=== PATIENT | male | born 1985 | race Caucasian/White ===

== ENCOUNTER 2017-04-20 22:11 | Emergency (ER) | payer MEDICARE, OTHER ==
[~2017-04-20] VITALS: Ht 177.8 cm; Wt 86.2 kg
[~2017-04-20 22:11] MED LIST: BENZ100C PO; CETI10TA16 PO
[2017-04-20 22:45] LABS: BASO # 0.1 x10^3/uL (0.0-0.2); BASO % 1 % (0-3); EOS % 3 % (0-3); HEMATOCRIT 36.2 % (39.0-53.0); HEMOGLOBIN 12.5 g/dL (13.0-17.5); LYMPH # 2.7 x10^3/uL (1.0-4.8); LYMPH % 26 % (24-48); MEAN CORPUSCULAR HEMOGLOBIN 31 pg (25-35); MEAN CORPUSCULAR HGB CONC 35 g/dL (31-37); MEAN CORPUSCULAR VOLUME 91 fL (79-100); MONO % 7 % (0-9); NEUT % 63 % (31-73); PLATELET COUNT 488 x10^3/uL (140-400); RED BLOOD COUNT 3.99 x10^6/uL (4.30-5.70); RED CELL DISTRIBUTION WIDTH 12.2 % (11.5-14.5); WHITE BLOOD COUNT 10.5 x10^3/uL (4.0-11.0)
[2017-04-20 22:54] LABS: CALCIUM 9.4 mg/dL (8.5-10.1); GFR 86.1; POTASSIUM 3.5 mmol/L (3.5-5.1)
[2017-04-20 23:01] LABS: ALBUMIN 3.8 g/dL (3.4-5.0); ALBUMIN/GLOBULIN RATIO 1.1 (1.0-1.7); TOTAL BILIRUBIN 0.6 mg/dL (0.2-1.0); TOTAL PROTEIN 7.4 g/dL (6.4-8.2)
[2017-04-20 23:47] LABS: BILIRUBIN,URINE NEGATIVE (NEG); GLUCOSE,URINE NEGATIVE (NEG); NITRITE,URINE NEGATIVE (NEG); PROTEIN,URINE NEGATIVE (NEG-TRACE)
[2017-04-20 23:52] LABS: BARBITURATES NEG (NEG); BENZODIAZEPINES NEG (NEG); CANNABINOIDS NEG (NEG); COCAINE NEG (NEG); METHADONE NEG (NEG); OPIATES NEG (NEG); PHENCYCLIDINE NEG (NEG)
[2017-04-20 23:59] LABS: BACTERIA,URINE FEW /HPF (0-FEW); RBC,URINE 0 /HPF (0-2)
[2017-04-21 00:01] LABS: SQUAMOUS EPITHELIAL CELL,UR FEW /LPF
--- NOTE | 2017-04-21 00:50 | PHYS DOC ---
Past Medical History Past Medical History: Bipolar, Other Additional Past Medical Histor: NERVE DAMAGE, ANGER PROBLEMS,TRANSGENDER RE- ASSIGNMENT, Past Surgical History: Other Additional Past Surgical Histo: right wrist, nose Alcohol Use: Sober Additional Information: "SOBER SINCE 10/2016 Drug Use: None Adult General Chief Complaint Chief Complaint: Palpitations HPI HPI Patient is a 31 year old M who presents with chest pain and slurred speech. Patient is a transgender transitioning to a female on multiple medications for bipolar including lithium who developed some chest pain for the past day. Patient states the pain is left-sided nonradiating. Patient has no cardiac history. Patient does not describe the pain with exertion. Patient denies any shortness of breath. Patient denies any fevers. Patient denies any nausea/ vomiting/diarrhea. Review of Systems Review of Systems GEN: Denies fevers, chills, sweats HEENT: Denies blurred vision, sore throat CV: chest pain RESP: Denies shortness of air, cough GI: Denies n/v/d NEURO: Difficulty speaking MSK: Denies weakness, joint pain/swelling Allergies Allergies Allergies Coded Allergies Type Severity Reaction Last Updated Verified aripiprazole Allergy Intermediate patient states he blacks out while on this medication 09/18/14 Yes divalproex sodium Allergy Intermediate patient states he blacks out while on this medication 09/18/14 Yes Physical Exam Physical Exam GEN.: No apparent distress. Alert and oriented. HEENT: Head is normocephalic, atraumatic NECK: Supple. LUNGS: CTAB. HEART: RRR, S1, S2 present. Peripheral pulses intact ABDOMEN: Soft, nontender. Positive bowel sounds. EXTREMITIES: Without any cyanosis. NEUROLOGIC: Slow pressured speech, normal tone, cranial nerves II through over grossly intact without any focal neurological deficits PSYCHIATRIC: Normal affect, normal mood. SKIN: No ulcerations Current Patient Data Vital Signs Vital Signs Date Time Temp Pulse Resp B/P (MAP) Pulse Ox O2 Delivery O2 Flow Rate FiO2 04/21/17 00:45 60 20 100/58 (72) 95 Room Air 04/20/17 22:12 98.0 98.0 Lab Values Laboratory Tests Test 04/20/17 22:22 04/20/17 23:37 White Blood Count 10.5 x10^3/uL (4.0-11.0) Red Blood Count 3.99 x10^6/uL (4.30-5.70) L Hemoglobin 12.5 g/dL (13.0-17.5) L Hematocrit 36.2 % (39.0-53.0) L Mean Corpuscular Volume 91 fL (79-100) Mean Corpuscular Hemoglobin 31 pg (25-35) Mean Corpuscular Hemoglobin Concent 35 g/dL (31-37) Red Cell Distribution Width 12.2 % (11.5-14.5) Platelet Count 488 x10^3/uL (140-400) H Neutrophils (%) (Auto) 63 % (31-73) Lymphocytes (%) (Auto) 26 % (24-48) Monocytes (%) (Auto) 7 % (0-9) Eosinophils (%) (Auto) 3 % (0-3) Basophils (%) (Auto) 1 % (0-3) Neutrophils # (Auto) 6.6 x10^3uL (1.8-7.7) Lymphocytes # (Auto) 2.7 x10^3/uL (1.0-4.8) Monocytes # (Auto) 0.7 x10^3/uL (0.0-1.1) Eosinophils # (Auto) 0.3 x10^3/uL (0.0-0.7) Basophils # (Auto) 0.1 x10^3/uL (0.0-0.2) Sodium Level 139 mmol/L (136-145) Potassium Level 3.5 mmol/L (3.5-5.1) Chloride Level 103 mmol/L (98-107) Carbon Dioxide Level 29 mmol/L (21-32) Anion Gap 7 (6-14) Blood Urea Nitrogen 10 mg/dL (8-26) Creatinine 1.0 mg/dL (0.7-1.3) Estimated GFR (Cockcroft-Gault) 86.1 BUN/Creatinine Ratio 10 (6-20) Glucose Level 110 mg/dL (70-99) H Calcium Level 9.4 mg/dL (8.5-10.1) Total Bilirubin 0.6 mg/dL (0.2-1.0) Aspartate Amino Transferase (AST) 15 U/L (15-37) Alanine Aminotransferase (ALT) 19 U/L (16-63) Alkaline Phosphatase 55 U/L (46-116) Troponin I Quantitative < 0.017 ng/mL (0.000-0.055) Total Protein 7.4 g/dL (6.4-8.2) Albumin 3.8 g/dL (3.4-5.0) Albumin/Globulin Ratio 1.1 (1.0-1.7) Lipase 81 U/L (73-393) Cliff Level 1.0 mmol/L (0.6-1.2) Cliff Last Dose Date 04/20/17 Cliff Last Dose Time 0800 Urine Collection Type Void Urine Color Yellow Urine Clarity Clear Urine pH 6.0 Urine Specific Barre 1.025 Urine Protein Negative mg/dL (NEG-TRACE) Urine Glucose (UA) Negative mg/dL (NEG) Urine Ketones (Stick) Negative mg/dL (NEG) Urine Blood Negative (NEG) Urine Nitrite Negative (NEG) Urine Bilirubin Negative (NEG) Urine Urobilinogen Dipstick 1.0 mg/dL (0.2 mg/dL) Urine Leukocyte Esterase Negative (NEG) Urine RBC 0 /HPF (0-2) Urine WBC 5-10 /HPF (0-4) Urine Squamous Epithelial Cells Few /LPF Urine Bacteria Few /HPF (0-FEW) Urine Hyaline Casts Few /HPF Urine Mucus Mod /LPF Urine Opiates Screen Neg (NEG) Urine Methadone Screen Neg (NEG) Urine Barbiturates Neg (NEG) Urine Phencyclidine Screen Neg (NEG) Urine Amphetamine/Methamphetamine Neg (NEG) Urine Benzodiazepines Screen Neg (NEG) Urine Cocaine Screen Neg (NEG) Urine Cannabinoids Screen Neg (NEG) Urine Ethyl Alcohol Neg (NEG) Laboratory Tests 04/20/17 22:22 Laboratory Tests 04/20/17 22:22 EKG EKG 2221: Normal sinus rhythm rate of 83 no STEMI [] Radiology/Procedures Radiology/Procedures CT scan of the head NAD Chest x-ray NAD [] Course & Med Decision Making Course & Med Decision Making Pertinent Labs and Imaging studies reviewed. (See chart for details) ED course: Patient was seen and evaluated emergency room cardiac workup was ordered along with a CT scan of the head 0231: Patient was reevaluated in which his chest pain had resolved and patient states he'll go home. Patient did not want to be admitted to the hospital for serial troponins and serial EKGs. Patient states she will follow-up as PCP. Patient's slurred speech had resolved and patient still denies taking any illicit drugs prior to coming emergency room. Patient was critically sober is alert and oriented 3 MDM: After reviewing the chart, CC/HPI/PMH, physical exam, [lab results], [ radiological results], I do not believe the patient having acute VT (HEART score =1), PE (Well's score 0), and low suspicion for acute thoracic aortic dissection. On reexamination the patient's chest pain has resolved and the patient is wanted to go home. Recommended short-term follow-up with his PCP. Additional verbal discharge instructions were provided to the patient and that if symptoms get worse or any new symptoms arise that are worrisome to the patient he is to return to the emergency room immediately [] Dragon Disclaimer Dragon Disclaimer This electronic medical record was generated, in whole or in part, using a voice recognition dictation system. Departure Departure Impression: Primary Impression: Chest pain Disposition: HOME, SELF-CARE Condition: IMPROVED Referrals: NO PCP (PCP) Patient Instructions: Chest Pain (Nonspecific) Additional Instructions: Please follow up with you doctor in one to 2 days returns if her symptoms increase SHALOM MAHER DO Apr 21, 2017 00:50
--- NOTE | 2017-04-21 01:44 | RAD ---
CT head without contrast TECHNIQUE: 5 mm axial noncontrast imaging skull base to vertex. History: Slurred speech. 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 No intracranial hemorrhage, mass, hydrocephalus, extra-axial fluid collections or infarction. No acute ischemic changes. Imaged orbits, mastoids, paranasal sinuses and bones are unremarkable. IMPRESSION: No acute intracranial CT abnormality. Exposure: One or more of the following individualized dose reduction techniques were utilized for this examination: 1. Automated exposure control 2. Adjustment of the mA and/or kV according to patient size 3. Use of iterative reconstruction technique Electronically signed by: [place] MD (04/21/2017 1:41 AM) [id number]
[2017-04-21 02:30] VITALS: BP 97/58
--- NOTE | 2017-04-21 08:10 | RAD ---
Indication chest pain. A single view of the chest was obtained. Comparison is made to an examination 07/02/2016. The heart and pulmonary vessels appear normal. The lungs are clear. There is no pleural fluid or pneumothorax. There has been little change in the appearance of the chest when compared to the previous exam. IMPRESSION: No acute or focal process. No significant change
--- NOTE | 2017-04-21 10:10 | EKG ---
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
== END 2017-04-21 03:00 | disposition home or self-care (01) ==
LOC: ER 22:11
DX: R07.89 Other chest pain (principal); R47.81 Slurred speech; F31.9 Bipolar disorder, unspecified; Z88.8 Allergy status to other drugs, medicaments and biological substances
CPT/HCPCS: 36415; 70450; 71010; 80053; 80178; 80307; 81001; 83690; 84484; 85027; 87086; 93005; 99285-25; G0479